=== PATIENT | male | born 1970 | race Caucasian/White ===

== ENCOUNTER 2020-04-23 15:48 | Emergency (ER) | payer SELFPAY ==
[~2020-04-23] VITALS: Ht 180.3 cm; Wt 82.0 kg
--- NOTE | 2020-04-23 16:13 | NUR ---
PT BIB EMS FOR "BODY ACHES, SOB, CONGESTION, COUGH, WATERY EYES, FEELING EXCESSIVELY TIRED X 1 WEEK". PT RECENTLY TRAVELED FROM [place] ONE MONTH AGO. PT IS 94% ON RM AIR. CONNECTED TO MONITORING EQUIPMENT.
[2020-04-23 16:23] LABS: BASOPHILS # (AUTO) 0.06 x10^3/uL (0-0.1); BASOPHILS % (AUTO) 1 % (0-1); EOSINOPHILS # (AUTO) 0.12 x10^3/uL (0-0.4); EOSINOPHILS % (AUTO) 2 % (1-7); LYMPHOCYTES % (AUTO) 34 % (22-44); MD NO; MEAN CORPUSCULAR HEMOGLOBIN 33.2 pg (27.5-34.5); MEAN CORPUSCULAR HGB CONC 34.4 g/dL (33.2-36.2); MEAN CORPUSCULAR VOLUME 96.4 fL (81-97); MEAN PLATELET VOLUME 6.7 fL (7.4-10.4); MONOCYTES # (AUTO) 0.57 x10^3/uL (0.2-0.8); MONOCYTES % (AUTO) 9 % (2-9); NEUTROPHILS # (AUTO) 3.64 x10^3/uL (1.8-6.8); NEUTROPHILS % (AUTO) 54 % (42-75); PLATELET COUNT 101 x10^3/uL (130-400); RED BLOOD COUNT 4.11 x10^6/uL (4.38-5.82)
[2020-04-23 16:31] LABS: ALANINE AMINOTRANSFERASE 140 U/L (12-78); ALBUMIN 4.2 g/dL (3.4-5.0); ANION GAP 10 mmol/L (5-15); CALCIUM 8.2 mg/dL (8.5-10.1); CHLORIDE 105 mmol/L (98-107)
[2020-04-23 16:34] LABS: ALKALINE PHOSPHATASE 90 U/L (45-117); BILIRUBIN,TOTAL 0.8 mg/dL (0.2-1.0); TOTAL PROTEIN 9.8 g/dL (6.4-8.2)
[2020-04-23 17:04] VITALS: BP 134/77
== END 2020-04-23 17:25 | disposition home or self-care (01) ==
LOC: ED 17:15
DX: R05 Cough (principal); Z20.828 Contact with and (suspected) exposure to other viral communicable diseases; R53.1 Weakness; R94.5 Abnormal results of liver function studies; R09.89 Other specified symptoms and signs involving the circulatory and respiratory systems; R07.9 Chest pain, unspecified
CPT/HCPCS: 36415; 71045; 80053; 85025; 93005; 99285; U0001